=== PATIENT | female | born 1965 | race African-American/Black ===

== ENCOUNTER 2020-07-26 14:08 | Outpatient (REF) | payer MEDICAID, SELFPAY ==
[2020-07-26 14:37] LABS: COVID-19 Test Positive (Negative)
== END 2020-07-26 14:09 | disposition home or self-care (01) ==
LOC: HO.LAB 14:08
PROVIDERS: Visit Provider Internal Medicine
DX: Z20.822 Contact with and (suspected) exposure to COVID-19 (principal)
CPT/HCPCS: 36415; 87635; C9803

== ENCOUNTER 2021-06-28 10:54 | Outpatient (REF) | payer MEDICAID, SELFPAY ==
--- NOTE | ~2021-06-28 | MM_ITS ---
EXAMINATION: MM SCREENING DIGITAL BREAST TOMOSYNTHESIS, BILATERAL CLINICAL INFORMATION: Screening. Asymptomatic. The lifetime risk of breast cancer based on the Tyrer-Cuzick Model is 6%. COMPARISON: Mammography: 04/04/2018, 10/24/2016, 09/12/2015 TECHNIQUE: Digital breast tomosynthesis is performed in both the craniocaudal and mediolateral oblique views along with computer-aided detection (CAD). Synthesized 2D images are generated from the tomosynthesis. FINDINGS: There are scattered areas of fibroglandular density (ACR BI-RADS breast composition Category b). There are no significant masses, abnormal calcifications, or other abnormalities. There are dermal calcifications at the posterior inferior breasts, greater on left. The axilla and skin contours are unremarkable. Parenchymal pattern is similar to prior studies. MM/MM tomosynthesis screening BI IMPRESSION: No mammographic evidence of malignancy. ASSESSMENT: BI-RADS 2: Benign RECOMMENDATION: Routine annual mammography screening. This patient's information was entered into a reminder system with a target due date for their next mammogram.
== END 2021-06-28 10:55 | disposition home or self-care (01) ==
LOC: HO.MAMMO 10:54
PROVIDERS: Visit Provider Internal Medicine
DX: Z12.31 Encounter for screening mammogram for malignant neoplasm of breast (principal)
CPT/HCPCS: 77063; 77067

== ENCOUNTER 2023-04-19 12:16 | Outpatient (REF) | payer MEDICAID, SELFPAY ==
[2023-04-19 13:45] LABS: Hematocrit 38.9 % (37.0-47.0); Hemoglobin 12.9 g/dl (12.0-16.0); Mean Corpuscular HGB Conc 33.2 g/dl (31.0-35.0); Mean Corpuscular Hemoglobin 30.1 pg (27.0-33.0); Mean Corpuscular Volume 90.9 fL (80.0-98.0); Mean Platelet Volume 10.7 fL (9.4-12.3); Platelet Count 325 X10*3/uL (160-400); Red Blood Count 4.28 X10*6/uL (4.20-5.50); Red Cell Distribution Width 13.7 % (11.0-16.0); White Blood Count 7.4 X10*3/uL (4.8-10.8)
[2023-04-19 14:24] LABS: Alanine Aminotransferase 22 U/L (0-31); Albumin Level 4.3 g/dL (3.5-5.0); Alkaline Phosphatase 76 U/L (39-117); Anion Gap 12 (12-20); Aspartate Amino Transferase 24 U/L (5-31); Bilirubin Total 0.5 mg/dL (0.0-1.0); Blood Urea Nitrogen 11 mg/dL (9-16); Calcium 9.7 mg/dL (8.4-10.2); Carbon Dioxide 26 mmol/L (22-29); Chloride 106 mmol/L (96-108); Cholesterol 260 mg/dL (<200); Estimated Glomerular Filt Rate > 60; Glucose Random 106 mg/dL (60-115); HDL Cholesterol 51 mg/dL (>40); LDL Cholesterol Calculated 179 mg/dL (<100); Potassium 3.4 mmol/L (3.3-5.1); Sodium 141 mmol/L (135-145); Total Protein 7.9 g/dL (6.5-8.0); Triglycerides 152 mg/dL (<150)
== END 2023-04-19 12:17 | disposition home or self-care (01) ==
LOC: HO.HHCL 12:16
PROVIDERS: Visit Provider Internal Medicine
DX: Z00.00 Encounter for general adult medical examination without abnormal findings (principal); E78.00 Pure hypercholesterolemia, unspecified; I10 Essential (primary) hypertension
CPT/HCPCS: 36415; 80053; 80061; 84443; 85027

== ENCOUNTER 2023-04-22 14:38 | Outpatient (REF) | payer MEDICAID, SELFPAY | END 2023-04-22 14:39 | disposition home or self-care (01) | LOC: HO.MAMMO 14:38 | PROVIDERS: PCP Internal Medicine; Visit Provider Internal Medicine | DX: Z12.31 Encounter for screening mammogram for malignant neoplasm of breast (principal) | CPT/HCPCS: 77063; 77067 ==

== ENCOUNTER → 2023-04-22 15:15 | Outpatient (BNV) | payer MEDICAID, SELFPAY | PROVIDERS: PCP Internal Medicine; Visit Provider Radiology Diagnostic Radiology | DX: Z12.31 Encounter for screening mammogram for malignant neoplasm of breast (principal) | CPT/HCPCS: 77063; 77067 ==

== ENCOUNTER 2023-04-23 15:06 | Outpatient (REF) | payer MEDICAID, SELFPAY ==
[2023-04-27 06:43] LABS: HPV mRNA E6/E7 rflx Not Detected (Not Detected)
== END 2023-04-23 15:07 | disposition home or self-care (01) ==
LOC: HO.CHCLNP 15:06
PROVIDERS: Visit Provider Advanced Practice Midwife
DX: Z12.4 Encounter for screening for malignant neoplasm of cervix (principal); Z11.51 Encounter for screening for human papillomavirus (HPV)
CPT/HCPCS: 87624; 88142

== ENCOUNTER 2023-05-31 10:01 | Outpatient (REF) | payer MEDICAID, SELFPAY ==
[2023-05-31 11:27] LABS: MANUAL DIFF FLAG NO
[2023-05-31 11:44] LABS: Basophils Percent Auto 0.6 % (0-2); Eosinophils Absolute Auto 0.1 X10*3/uL (0.0-0.4); Eosinophils Percent Auto 0.9 % (0-4); Hematocrit 40.6 % (37.0-47.0); Hemoglobin 13.4 g/dl (12.0-16.0); Imm Gran Abs Auto 0.02 X10*3/uL (0.00-0.03); Imm Gran Pct Auto 0.3 % (0.0-0.4); Lymphocytes Absolute Auto 2.6 X10*3/uL (1.2-4.9); Lymphocytes Percent Auto 39.2 % (20-40); Mean Corpuscular Hemoglobin 30.4 pg (27.0-33.0); Mean Corpuscular Volume 92.1 fL (80.0-98.0); Mean Platelet Volume 10.6 fL (9.4-12.3); Monocytes Absolute Auto 0.6 X10*3/uL (0.1-1.2); Monocytes Percent Auto 8.3 % (2-11); Neutrophils Absolute Auto 3.4 x10*3/uL (2.0-8.3); Neutrophils Percent Auto 50.7 % (45-73); Platelet Count 308 X10*3/uL (160-400); Red Blood Count 4.41 X10*6/uL (4.20-5.50); Red Cell Distribution Width 13.5 % (11.0-16.0); White Blood Count 6.6 X10*3/uL (4.8-10.8)
[2023-05-31 11:52] LABS: Rheumatoid Factor < 13.0 IU/mL (<15.0)
[2023-05-31 11:57] LABS: Alanine Aminotransferase 22 U/L (0-31); Albumin Level 4.5 g/dL (3.5-5.0); Alkaline Phosphatase 75 U/L (39-117); Anion Gap 12 (12-20); Aspartate Amino Transferase 23 U/L (5-31); Bilirubin Total 0.5 mg/dL (0.0-1.0); Blood Urea Nitrogen 15 mg/dL (9-16); C Reactive Protein 0.65 mg/dL (< or = 0.50); Calcium 10.1 mg/dL (8.4-10.2); Carbon Dioxide 27 mmol/L (22-29); Chloride 107 mmol/L (96-108); Estimated Glomerular Filt Rate > 60; Glucose Random 103 mg/dL (60-115); Potassium 4.4 mmol/L (3.3-5.1); Sodium 142 mmol/L (135-145); Total Protein 8.1 g/dL (6.5-8.0)
[2023-05-31 12:19] LABS: Erythrocyte Sedimentation Rate 13 MM/HR (0-20)
[2023-06-04 13:48] LABS: Parvovirus B19 IgG 6.61; Parvovirus B19 IgM <0.9
[2023-06-06 12:24] LABS: Anti Nuclear Antibody Screen NEGATIVE (NEGATIVE)
== END 2023-05-31 10:02 | disposition home or self-care (01) ==
LOC: HO.HHCL 10:01
PROVIDERS: Visit Provider Family Medicine
DX: M25.50 Pain in unspecified joint (principal); M79.10 Myalgia, unspecified site
CPT/HCPCS: 36415; 80053; 82550; 85025; 85652; 86038; 86140; 86431; 86747

== ENCOUNTER 2023-05-31 10:22 | Outpatient (REF) | payer MEDICAID, SELFPAY ==
--- NOTE | ~2023-05-31 | XR_ITS ---
EXAMINATION: XR CERVICAL AND LUMBAR SPINE CLINICAL INFORMATION: Neck pain, back pain. COMPARISON: Lumbar spine January 01, 2018 TECHNIQUE: 4 views of the cervical spine. 3 views of the lumbar spine. FINDINGS: Cervical Spine: Rightward curvature of the cervical spine with rotation limiting evaluation of the odontoid. Amorphous soft tissue calcifications in the neck, predominantly on the left. Multilevel degenerative changes with advanced loss of disc space height and hypertrophic change at C5-C6. Minimal anterolisthesis of C4 on C5. C7 obscured by overlying soft tissues. Lumbar Spine: Small pelvic calcifications are likely vascular. The bilateral sacroiliac joints are symmetrical. Degenerative changes on limited images of the lower thoracic spine. Facet arthritis in the lower lumbar spine. Multilevel lumbar spondylosis with mild loss of disc space height at L4-L5 and L5-S1. Grade 1 retrolisthesis of L4 and L5. XR/XR lumbar spine 2-3V IMPRESSION: 1. Multilevel degenerative changes in the cervical spine most notable at C5-C6. 2. Multilevel lumbar spondylosis most notable at L4-L5 and L5-S1.
--- NOTE | ~2023-05-31 | XR_ITS ---
EXAMINATION: XR CERVICAL AND LUMBAR SPINE CLINICAL INFORMATION: Neck pain, back pain. COMPARISON: Lumbar spine January 01, 2018 TECHNIQUE: 4 views of the cervical spine. 3 views of the lumbar spine. FINDINGS: Cervical Spine: Rightward curvature of the cervical spine with rotation limiting evaluation of the odontoid. Amorphous soft tissue calcifications in the neck, predominantly on the left. Multilevel degenerative changes with advanced loss of disc space height and hypertrophic change at C5-C6. Minimal anterolisthesis of C4 on C5. C7 obscured by overlying soft tissues. Lumbar Spine: Small pelvic calcifications are likely vascular. The bilateral sacroiliac joints are symmetrical. Degenerative changes on limited images of the lower thoracic spine. Facet arthritis in the lower lumbar spine. Multilevel lumbar spondylosis with mild loss of disc space height at L4-L5 and L5-S1. Grade 1 retrolisthesis of L4 and L5. XR/XR cervical spine 3V IMPRESSION: 1. Multilevel degenerative changes in the cervical spine most notable at C5-C6. 2. Multilevel lumbar spondylosis most notable at L4-L5 and L5-S1.
== END 2023-05-31 10:23 | disposition home or self-care (01) ==
LOC: HO.XRAY 10:22
PROVIDERS: PCP Family Medicine; Visit Provider Family Medicine
DX: M54.2 Cervicalgia (principal); M54.50 Low back pain, unspecified
CPT/HCPCS: 36415; 72040; 72100; 80053; 82550; 85025; 85652; 86038; 86140; 86431; 86747

== ENCOUNTER 2023-08-22 14:23 | Outpatient (REF) | payer MEDICAID, SELFPAY ==
--- NOTE | ~2023-08-22 | XR_ITS ---
EXAMINATION: XR SHOULDER, RIGHT CLINICAL INFORMATION: Chronic right shoulder pain COMPARISON: None available. TECHNIQUE: AP external rotation, Grashey, scapular Y, and axillary views of the right shoulder. FINDINGS: There are 2 adjacent areas of calcification overlying the greater tuberosity. The glenohumeral joint and acromioclavicular joint are normal. Surrounding bone and soft tissues otherwise unremarkable. XR/XR shoulder RT min 2V IMPRESSION: 1. Calcifications overlying the greater tuberosity likely reflecting calcific tendinosis/tendinitis. 2. Otherwise unremarkable.
== END 2023-08-22 14:24 | disposition home or self-care (01) ==
LOC: HO.XRAY 14:23
PROVIDERS: PCP Internal Medicine; Visit Provider Pediatrics
DX: M25.511 Pain in right shoulder (principal)
CPT/HCPCS: 73030

== ENCOUNTER 2024-06-22 13:33 | Outpatient (REF) | payer MEDICAID, SELFPAY ==
[2024-06-22 16:17] LABS: MANUAL DIFF FLAG NO
[2024-06-22 16:26] LABS: Basophils Percent Auto 0.4 % (0-2); Eosinophils Absolute Auto 0.1 X10*3/uL (0.0-0.4); Eosinophils Percent Auto 0.7 % (0-4); Hematocrit 36.2 % (37.0-47.0); Hemoglobin 12.1 g/dl (12.0-16.0); Imm Gran Abs Auto 0.04 X10*3/uL (0.00-0.03); Imm Gran Pct Auto 0.5 % (0.0-0.4); Lymphocytes Absolute Auto 2.9 X10*3/uL (1.2-4.9); Lymphocytes Percent Auto 36.6 % (20-40); Mean Corpuscular HGB Conc 33.4 g/dl (31.0-35.0); Mean Corpuscular Volume 89.8 fL (80.0-98.0); Mean Platelet Volume 10.1 fL (9.4-12.3); Monocytes Absolute Auto 0.8 X10*3/uL (0.1-1.2); Monocytes Percent Auto 9.8 % (2-11); Neutrophils Absolute Auto 4.2 x10*3/uL (2.0-8.3); Platelet Count 326 X10*3/uL (160-400); Red Blood Count 4.03 X10*6/uL (4.20-5.50); Red Cell Distribution Width 13.8 % (11.0-16.0)
[2024-06-22 16:56] LABS: Alanine Aminotransferase 28 U/L (0-31); Albumin Level 4.3 g/dL (3.5-5.0); Anion Gap 13 (12-20); Aspartate Amino Transferase 31 U/L (5-31); Bilirubin Total 0.5 mg/dL (0.0-1.0); Blood Urea Nitrogen 20 mg/dL (9-16); Calcium 9.7 mg/dL (8.4-10.2); Carbon Dioxide 25 mmol/L (22-29); Chloride 104 mmol/L (96-108); Cholesterol 171 mg/dL (<200); Estimated Glomerular Filt Rate > 60; Glucose Random 102 mg/dL (60-115); HDL Cholesterol 60 mg/dL (>40); LDL Cholesterol Calculated 92 mg/dL (<100); Potassium 3.2 mmol/L (3.3-5.1); Sodium 139 mmol/L (135-145); Triglycerides 98 mg/dL (<150)
[2024-06-22 17:02] LABS: Alkaline Phosphatase 72 U/L (39-117); TSH reflex Free T4 2.22 uIU/mL (0.32-4.0)
== END 2024-06-22 13:34 | disposition home or self-care (01) ==
LOC: HO.HHCL 13:33
PROVIDERS: Visit Provider Internal Medicine
DX: Z00.00 Encounter for general adult medical examination without abnormal findings (principal); E78.00 Pure hypercholesterolemia, unspecified; I10 Essential (primary) hypertension; F32.A Depression, unspecified
CPT/HCPCS: 36415; 80053; 80061; 84443; 85025

== ENCOUNTER 2024-06-24 11:32 | Outpatient (REF) | payer MEDICAID, SELFPAY ==
--- OUTSIDE RECORDS SUMMARY | 2024-06-24 14:04 | XMS_ITS | Encounter Summary ---
Author Organization [employer] Address [address] [place] [address] Care Team Providers Care Material Scheduler Name Role Phone Amari Cabrera MD Primary Care Provider [phone] Reason for Visit * Reason Comments Annual Exam Encounter Details Date Type Department Care Team ([facility] st Contact Info) Description 06/18/2024 2:00 PM EDT Office Visit [facility] [address], [place] [phone] Amari Cabrera MD [address] [place] [phone] Annual physical exam (Primary Dx); Hypercholesterolemia; Primary hypertension; Myalgia; Depressive disorder; Screening for colon cancer; Tinea versicolor; Essential (primary) hypertension; Rosacea Social History Tobacco Use Types Packs/Day Years Used Date Smoking Tobacco: Never Smokeless Tobacco: Never Alcohol Use Standard Drinks/Week Comments Not Currently 0 (1 standard drink = 0.6 oz pur e alcohol) Alcohol Answer Date Recorded How often do you have a drink containing alcohol ? 1 06/18/2024 How many drinks containing a lcohol do you have on a typical day when you are drinking? 1 06/18/2024 Frequency of Binge Drinking Not on file 05/31 Depression Answer Date Recorded Patient Health Questionnaire-9 Score 6 06/18/2024 Patient Health Questionnaire-9 Score 6 06/18/2024 Last PHQ-9: Questionnaire Data Not on file 0 06/18/2024 Housing Stability Answer Date Recorded What is your housing situation today? I have tere petit 06/11/[address] you li ve. Do you have problems with any of the following? None of the above 06/11/2024 Food Insecurity Answer Date Recorded Within the past 12 months, y ou worried that your food would run out before you got money to buy more: Never True 06/11/2024 Within the past 12 months,th e food you bought just didn't last and you didn't have enough money to get more: Never True Transportation Answer Date Recorded In the past 12 months, has l ack of transportation kept you from medical appts, meetings, work or from getting things needed for daily living? Yes, it has kept me from medical appointments or getting medications. 06/11/2024 Utilities Answer Date Recorded In the past 12 months, has t he electric, gas, oil or water company threatened to shut off services in your home? No 06/11/2024 Depression Answer Date Recorded Patient Health Questionnaire-2 Score 2 06/18/2024 Internet Access Answer Date Recorded Internet Access Q1 Yes 06/11/2024 Internet Access Q2 Not on file 06/11/2024 Comments No Sex and Gender Information Value Date Recorded Sex Assigned at Female 01/29/2022 10:15 AM EDT Legal Sex Female 10:15 AM EDT Gender Identity Female 01/29/2022 10:15 AM EDT Sexual Orientation Straight 01/29/2022 10 :15 AM EDT documented as of this encounter Last Filed Vital Signs Vital Sign Reading Time Taken Comments Blood Pressure 140/82 06/18/2024 1:53 PM EDT Pulse 74 06/18/2024 1:53 PM EDT Temperature 36.7 ??C (98 ??F) 06/18/2024 1:53 PM EDT Respiratory Rate 20 06/18/2024 1:53 PM EDT Oxygen Saturation 98% 06/18/2024 1:53 PM EDT Inhaled Oxygen Concentration - - Weight 67.1 kg (148 lb) 06/18/2024 1:53 PM EDT Height 160 cm (5' 3 ) 06/18/2024 1:53 PM EDT Body Mass Index 26.22 06/18/2024 1:53 PM EDT documented in this encounter Progress Notes * Amari Cabrera MD - 06/18/2024 2:00 PM EDT Subjective Patient ID: Oriana Lares is a 58 y.o. female who presents for Annual Exam. HPI Patient is here for her annual physical exam. 1) history of hypertension. Takes her medication and consistently. No side effect reported. 2) history of tinea versicolor. Has some recurrence of the lesions in the last 2 to 3 weeks. Would like to get her previous treatment. 3) patient is currently grieving the loss of a close friend. Also reports that she is worried abouther who is currently receiving hemodialysis. 4) also requesting a referral to get an eye exam. 5) history of's of rosacea. Patient is requesting a refill of her metronidazole Patient Active Problem List Diagnosis Depressive disorder Hypercholesterolemia Hypertensive disorder Myalgia Polyarthralgia Current Outpatient Medications on File Prior to Visit Medication Sig Dispense Refill amLODIPine (Norvasc) 10 MG tablet Take 1 tablet (10 mg) by mouth in the morning. 90 tablet 3 atorvastatin (Lipitor) 40 MG tablet Take 1 tablet (40 mg) by mouth at bedtime. 90 tablet 3 cyclobenzaprine (Flexeril) 10 MG tablet Take 1 tablet (10 mg) by mouth 3 times daily for 10 days. 30 tablet 0 Diclofenac Sodium 1 % gel To apply to the affected area 4 times a day. 100 g 2 diphenhydrAMINE (BENADryl) 25 MG capsule TAKE 1 CAPSULE BY MOUTH EVERY 8 HOURS NEEDED FOR ITCHING 60 capsule 0 fluconazole (Diflucan) 150 MG tablet 300 mg once weekly for 2 weeks 4 tablet 0 hydroCHLOROthiazide (HYDRODiuril) 25 MG tablet Take 1 tablet (25 mg) by mouth in the morning. 90 tablet 3 lidocaine (Xylocaine) 5 % ointment Apply topically if needed for mild pain. 50 g 0 metroNIDAZOLE (MetroCream) 0.75 % cream Apply topically 2 times daily. 45 g 5 Multiple Vitamin (Multivitamin) tablet TAKE 1 TABLET BY MOUTH EVERY DAY 90 tablet 3 zaleplon (Sonata) 10 MG capsule TAKE 1 CAPSULE BY MOUTH EVERY DAY AT BEDTIME NEEDED FOR SLEEP No current facility-administered medications on file prior to visit. No Known Allergies Review of Systems Constitutional: Negative for activity change, appetite change, chills and diaphoresis. HENT: Negative for dental problem, drooling, ear discharge, ear pain and hearing loss. Eyes: Negative for pain, discharge and itching. Respiratory: Negative for cough, choking and chest tightness. Cardiovascular: Negative for chest pain and leg swelling. Gastrointestinal: Negative for blood in stool and diarrhea. Genitourinary: Negative for difficulty urinating, dyspareunia, dysuria, enuresis, flank pain, frequency and genital sores. Musculoskeletal: Negative for arthralgias, gait problem and joint swelling. Skin: Negative for pallor. Neurological: Negative for dizziness, seizures, speech difficulty, light- headedness and numbness. Psychiatric/Behavioral: Negative for behavioral problems, confusion and decreased concentration. Objective BP (!) 140/82 (BP Location: Left arm, Patient Position: Sitting, BP Cuff Size: Adult) Pulse 74 Temp 98 ??F (36.7 ??C) (Oral) Resp 20 Ht 5' 3 (1.6 m) Wt 148 lb (67.1 kg) SpO2 98% BMI 26.22 kg/m?? Physical Exam Constitutional: General: She is not in acute distress. Appearance: Normal appearance. She is not ill-appearing, toxic-appearing or diaphoretic. HENT: Head: Normocephalic. Right Ear: Tympanic membrane normal. There is no impacted cerumen. Left Ear: Tympanic membrane normal. There is no impacted cerumen. Nose: Nose normal. No congestion or rhinorrhea. Mouth/Throat: Mouth: Mucous membranes are moist. Eyes: General: No scleral icterus. Right eye: No discharge. Left eye: No discharge. Pupils: Pupils are equal, round, and reactive to light. Cardiovascular: Rate and Rhythm: Normal rate and regular rhythm. Heart sounds: No murmur heard. No friction rub. No gallop. Pulmonary: Effort: Pulmonary effort is normal. No respiratory distress. Breath sounds: No stridor. No wheezing, rhonchi or rales. Chest: Chest wall: No tenderness. Abdominal: General: There is no distension. Palpations: Abdomen is soft. There is no mass. Tenderness: There is no abdominal tenderness. There is no right CVA tenderness or left CVA tenderness. Musculoskeletal: General: Normal range of motion. Cervical back: Normal range of motion. Skin: Comments: Multiple mildly erythematous patches of around 1 x 1 cm of diameter with fine scales located on the anterior chest and upper back. Neurological: General: No focal deficit present. Mental Status: She is alert and oriented to person, place, and time. Psychiatric: Mood and Affect: Mood normal. Assessment/Plan Diagnoses and all orders for this visit: Annual physical exam Comments: Normal cardiopulmonary exam Patient is to maintain a healthy and balanced diet. She declines all vaccines today. Orders: - CBC auto differential; Future - Comprehensive Metabolic Panel; Future - Lipid Panel, Standard; Future - TSH W/Reflex to FT4; Future Hypercholesterolemia Comments: Low-cholesterol diet Lipid panel ordered. Further management depending on the results. Orders: - CBC auto differential; Future - Comprehensive Metabolic Panel; Future - Lipid Panel, Standard; Future - TSH W/Reflex to FT4; Future Primary hypertension Comments: Compliance to medication reinforced DASH diet recommended. Orders: - CBC auto differential; Future - Comprehensive Metabolic Panel; Future - Lipid Panel, Standard; Future - TSH W/Reflex to FT4; Future Myalgia Comments: Stable No acute intervention today. Depressive disorder Comments: Patient declines a referral to start psychotherapy. Orders: - CBC auto differential; Future Screening for colon cancer - Cologuard?? colon cancer screening; Future Tinea versicolor - fluconazole (Diflucan) 150 MG tablet; 300 mg on day 1, 300 mg on day 7 Essential (primary) hypertension Comments: Uncontrolled due to non compliance to medication Pt is to resume her BP medication DASH diet recommended. RTC BP check 1 month Orders: - amLODIPine (Norvasc) 10 MG tablet; Take 1 tablet (10 mg) by mouth in the morning. - hydroCHLOROthiazide (HYDRODiuril) 25 MG tablet; Take 1 tablet (25 mg) by mouth in the morning. Rosacea - metroNIDAZOLE (MetroCream) 0.75 % cream; Apply topically 2 times daily. documented in this encounter Plan of Treatment Upcoming Encounters Date Type Department Care Team (Late st Contact Info) Description 09/23/2024 10:30 AM EDT Office Visit [facility] [address] [place] [address] Amari Cabrera MD [address] [place], [place] [phone] Scheduled Orders Name Type Priority Associated Diagnoses Orde r Schedule Cologuard?? colon cancer screening Lab Routine Screening for colon cancer Expected: 06/18/2024 (Approximate), Expires: 06/18/2025 documented as of this encounter Procedures Procedure Name Priority Date/Time Associated Diagnosis Comments TSH W/REFLEX TO FT4 Routine 06/22/2024 1 :35 PM EDT Annual physical exam Hypercholesterolemia Primary hypertension CBC WITH AUTO DIFFERENTIAL Routine 06/22/2024 1:35 PM EDT Annual physical exam Hypercholesterolemia Primary hypertension Depressive disorder LIPID PANEL, STANDARD Routine 06/22/2024 1:35 PM EDT Annual physical exam Hypercholesterolemia Primary hypertension COMPREHENSIVE METABOLIC PANEL Routine 06/22/2024 1:35 PM EDT Annual physical exam Hypercholesterolemia Primary hypertension documented in this encounter Results * TSH W/Reflex to FT4 (06/22/2024 1:35 PM EDT) TSH reflex Free T4 2.22 0.32 - 4.0 uIU/mL [facility] Blood Venous blood specimen / Unknown 06/22/2024 1:35 PM EDT 06/22/2024 4:11 PM EDT us Amari Cabrera MD LAB BLOOD ORDERABLES Final Result [facility] [address] [place] [phone] * Lipid Panel, Standard (06/22/2024 1:35 PM EDT) Triglycerides 98 <150 mg/dL [facility] Comment:Desirable Triglyceri de: less than 150 mg/dLBorderline High Triglyceride 150-199 mg/dLHigh Triglyceride: 200-499 mg/dLVery High Triglyceride: greater than or equal to 5OO mg/dL Cholesterol 171 <200 mg/dL [facility] Comment:Desirable Cholestero l: less than 200 mg/dLBorderline High Cholesterol: 200-239 mg/dLHigh Cholesterol: greater than 239 mg/dL LDL Cholesterol Calculated 92 <100 mg/dL [facility] Comment:Desirable LDL: less than 100 mg/dLNear Optimal/Above Optimal LDL: 110- 129 mg/dLBorderline High LDL: 130-159 mg/dLHigh LDL: 160-189 mg/dLVery High LDL: greater than or equal to 190 mg/dL HDL Cholesterol 60 >40 mg/dL [facility] Comment:Desirable HDL: great er than 40 mg/dL Note: This HDL assay may give artificially low results in patients with liver disease. Blood Venous blood specimen / Unknown 06/22/2024 1:35 PM EDT 06/22/2024 4:11 PM EDT us Amari Cabrera MD LAB BLOOD ORDERABLES Final Result [facility] [address] [place] [phone] * (ABNORMAL) Comprehensive Metabolic Panel (06/22/2024 1:35 PM EDT) Sodium 139 135 - 145 mmol/L [facility] Potassium 3.2(L) 3.3 - 5.1 mmol/L [facility] Chloride 104 96 - 108 mmol/L [facility] Carbon Dioxide 25 22 - 29 mmol/L [facility] Anion Gap 13 12 - 20 [facility] Urea Nitrogen (BUN) 20(H) 9 - 16 mg/dL [facility] Creatinine, Serum 0.65 0.5 - 1.4 mg/dL [facility] Estimated Glomerular Filt Rate >60 [facility] Comment:Chronic Kidney Disea se: Estimated GFR < 60 mL/min/[id number] Kidney Disease: Estimated GFR < 15 mL/min/1.73m2 Glucose 102 60 - 115 mg/dL [facility] Calcium 9.7 8.4 - 10.2 mg/dL [facility] Bilirubin, Total 0.5 0.0 - 1.0 mg/dL [facility] Aspartate Amino Transferase 31 5 - 31 U/L [facility] Alanine Aminotransferase 28 0 - 31 U/L [facility] Total Protein 8.0 6.5 - 8.0 g/dL [facility] Albumin Level 4.3 3.5 - 5.0 g/dL [facility] Alkaline Phosphatase 72 39 - 117 U/L [facility] Blood Venous blood specimen / Unknown 06/22/2024 1:35 PM EDT 06/22/2024 4:11 PM EDT us Amari Cabrera MD LAB BLOOD ORDERABLES Final Result [facility] [address] [place] [phone] * (ABNORMAL) CBC auto differential (06/22/2024 1:35 PM EDT) White Blood Count 8.0 4.8 - 10.8 X10*3/uL [facility] Red Blood Count 4.03(L) 4.20 - 5.50 X10*6/uL [facility] Hemoglobin 12.1 12.0 - 16.0 g/dl [facility] Hematocrit 36.2(L) 37.0 - 47.0 % [facility] Mean Corpuscular Volume 89.8 80.0 - 98.0 fL [facility] Mean Corpuscular Hemoglobin 30.0 27.0 - 33.0 pg [facility] Mean Corpuscular HGB Conc 33.4 31.0 - 35.0 g/dl [facility] Red Cell Distribution Width 13.8 11.0 - 16.0 % [facility] Platelet Count 326 160 - 400 X10*3/uL [facility] Mean Platelet Volume 10.1 9.4 - 12.3 fL [facility] Neutrophils Percent Auto 52.0 45 - 73 % [facility] Imm Gran Pct Auto 0.5(H) 0.0 - 0.4 % [facility] Lymphocytes Percent Auto 36.6 20 - 40 % [facility] Monocytes Percent Auto 9.8 2 - 11 % [facility] Eosinophils Percent Auto 0.7 0 - 4 % [facility] Basophils Percent Auto 0.4 0 - 2 % [facility] NRBC Pct Auto 0.0 0.0 - 0.2 /100WBC [facility] Neutrophils Absolute Auto 4.2 2.0 - 8.3 x10*3/uL [facility] Imm Gran Abs Auto 0.04(H) 0.00 - 0.03 X10*3/uL [facility] Lymphocytes Absolute Auto 2.9 1.2 - 4.9 X10*3/uL [facility] Monocytes Absolute Auto 0.8 0.1 - 1.2 X10*3/uL [facility] Eosinophils Absolute Auto 0.1 0.0 - 0.4 X10*3/uL [facility] Basophils Absolute Auto 0.0 0.0 - 0.2 X10*3/uL [facility] NRBC Abs Auto 0.000 0.0 - 0.012 X10*3/uL [facility] Blood Venous blood specimen / Unknown 06/22/2024 1:35 PM EDT 06/22/2024 4:11 PM EDT us Amari Cabrera MD LAB BLOOD ORDERABLES Final Result Performing Organization Address City/State/[facility] Co de Phone Number [facility] [address] [place] [phone] documented in this encounter Visit Diagnoses Diagnosis Annual physical exam- Primary Routine general medical examination at a health care facility Hypercholesterolemia Pure hypercholesterolemia Primary hypertension Unspecified essential hypertension Myalgia Unspecified myalgia and myositis Depressive disorder Depressive disorder, not elsewhere classified Screening for colon cancer Special screening for malignant neoplasms, colon Tinea versicolor Pityriasis versicolor Essential (primary) hypertension Unspecified essential hypertension Rosacea documented in this encounter Additional Health Concerns Assessment Noted Time PHQ-9 Depression Total Score: 6 06/19/19 25 2:22 PM EDT documented as of this encounter Care Teams Material Scheduler Relationship Specialty Start Date End Date Amari Cabrera MD [address] [place] [phone] PCP - General Internal Medicine 07/27/11 documented as of this encounter
--- OUTSIDE RECORDS SUMMARY | 2024-06-24 14:04 | XMS_ITS | Encounter Summary ---
Author Organization [employer] Address [address] [place] [address] Care Team Providers Care Booking Manager Name Role Phone Amari Cabrera MD Primary Care Provider [phone] Encounter Details Date Type Department Care Team ([facility] st Contact Info) Description 04/19/2023 Orders Only [facility] MED & PEDS [address] [place] [address] Amari Cabrera MD [address] [place] [address] Social History Tobacco Use Types Packs/Day Years Used Date Smoking Tobacco: Never Smokeless Tobacco: Never Depression Answer Date Recorded Patient Health Questionnaire-9 Score 13 03/13/2023 Patient Health Questionnaire-9 Score 13 03/13/2023 Last PHQ-9: Questionnaire Data Not on file 1 05/14/2022 Housing Stability Answer Date Recorded What is your housing situation today? I do not have housing (Staying with others, in a hotel, in a prison, living outside on the street, on a beach, in a car, or in a park 01/06/[address] you li ve. Do you have problems with any of the following? None of the above 01/06/2023 Food Insecurity Answer Date Recorded Within the past 12 months, y ou worried that your food would run out before you got money to buy more: Often true 01/14/2023 Within the past 12 months,th e food you bought just didn't last and you didn't have enough money to get more: Often true Transportation Answer Date Recorded In the past 12 months, has l ack of transportation kept you from medical appts, meetings, work or from getting things needed for daily living? No 01/14/2023 Utilities Answer Date Recorded In the past 12 months, has t he electric, gas, oil or water company threatened to shut off services in your home? No 01/14/2023 Depression Answer Date Recorded Patient Health Questionnaire-2 Score 6 03/13/2023 Comments Unknown Sex and Gender Information Value Date Recorded Sex Assigned at Female 01/29/2022 10:15 AM EDT Legal Sex Female 10:15 AM EDT Gender Identity Female 01/29/2022 10:15 AM EDT Sexual Orientation Straight 01/29/2022 10 :15 AM EDT documented as of this encounter Plan of Treatment Upcoming Encounters Date Type Department Care Team ([facility] st Contact Info) Description 09/23/2024 10:30 AM EDT Office Visit [facility] MED & PEDS [address] [place] [address] mAari Cabrera MD [address] [place] [address] documented as of this encounter Visit Diagnoses Not on filedocumented in this encounter Additional Health Concerns Assessment Noted Time PHQ-9 Depression Total Score: 13 023 10:43 AM EST documented as of this encounter Care Teams Booking Manager Relationship Specialty Start Date End Date Amari Cabrera MD [address] [place] [address] PCP - General Internal Medicine 07/27/11 documented as of this encounter
--- OUTSIDE RECORDS SUMMARY | 2024-06-24 14:04 | XMS_ITS | Encounter Summary ---
Author Organization [employer] Address [address] [facility] [address] [place] [address] Care Team Providers Care Optical Lab Technician Name Role Phone Amari Cabrera MD Primary Care Provider [phone] Encounter Details Date Type Department Care Team (Late st Contact Info) Description 06/23/2024 Orders Only [facility] MEDICINE [address] [place] [address] Amari Cabrera MD [address] [place] [address] Hypokalemia (Primary Dx) Social History Tobacco Use Types Packs/Day Years [...] Description 09/23/2024 10:30 AM EDT Office Visit [facility] MED & PEDS [address] [place] [address] Amari Cabrera MD [address] [place] [address] Scheduled Orders Name Type Priority Associated Diagnoses Orde r Schedule Basic Metabolic Panel Lab Routine Hypokalemia Expected: 06/23/2024 (Approximate), Expires: 06/23/2025 documented as of this encounter Visit Diagnoses Diagnosis Hypokalemia- Primary Hypopotassemia documented in this encounter Additional Health Concerns Assessment Noted Time PHQ-9 Depression Total Score: 6 06/19/19 2:22 PM EDT documented as of this encounter Care Teams Optical Lab Technician Relationship Specialty Start Date End Date Amari Cabrera MD [address] [place] [address] PCP - General Internal Medicine 07/27/11 documented as of this encounter
--- OUTSIDE RECORDS SUMMARY | 2024-06-24 14:04 | XMS_ITS | Encounter Summary ---
Author Organization [employer] Address [address] [facility] [address] [place] [address] Care Team Providers Care Photographer News Name Role Phone Amari Cabrera MD Primary Care Provider [phone] Reason for Visit * Reason Onset Date Comments Chart Prep 06/17/2024 Encounter Details Date Type Department Care Team ([facility] st Contact Info) Description 06/17/2024 Telephone [facility] MED & PEDS [address] [place], [place] [id number] Amari Cabrera MD [address] [place] [address] Chart Prep Social History Tobacco Use Types Packs/Day Years [...] the past 12 months, has t he [employer], gas, oil or water company threatened to [...] AM EDT documented as of this encounter Miscellaneous Notes * Telephone Encounter - Analisa Chinchilla [place] - 06/17/2024 3:26 PM EDT Chart Prep Labs: done Images: done Vaccines due: yes Referrals: complete Screenings: colonoscopy Overdue care gaps: Sbirt, PHQ-9, disability screening documented in this encounter Plan of Treatment Upcoming Encounters Date Type Department Care Team ([facility] st Contact Info) Description 09/23/2024 10:30 AM EDT Office Visit [facility] MED & PEDS [address] [place] [address] Amari Cabrera MD [address] [place] [address] documented as of this encounter Visit Diagnoses Not on filedocumented in this encounter Additional Health Concerns Assessment Noted Time PHQ-9 Depression Total Score: 13 023 10:43 AM EST documented as of this encounter Care Teams Photographer News Relationship Specialty Start Date End Date Amari Cabrera MD [address] [place] [id number] PCP - General Internal Medicine 07/27/11 documented as of this encounter
--- OUTSIDE RECORDS SUMMARY | 2024-06-24 14:04 | XMS_ITS | Clinical Summary ---
Author Organization [employer] Address [address] [facility] [address] [place] [address] Care Team Providers Care Burner Technician Name Role Phone Amari Cabrera MD Primary Care Provider [phone] Allergies No known active allergies Medications Multiple Vitamin (Multivitamin) tabletIndicatio ns:Other iron deficiency anemia TAKE 1 TABLET BY MOUTH EVERY DAY 90 tablet 3 03/29/20 22 Active diphenhydrAMINE (BENADryl) 25 MG capsuleIndicati ons:Pruritus of skin TAKE 1 CAPSULE BY MOUTH EVERY 8 HOURS NEEDED FOR ITCHING 60 capsule 06/20/19 23 Active zaleplon (Sonata) 10 MG capsule TAKE 1 CAPSULE BY MOUTH EVERY DAY AT BEDTIME NEEDED FOR SLEEP Active Diclofenac Sodium 1 % gelIndications: Neck pain,Acute midline low back pain without sciatica To apply to the affected area 4 times a day. 100 g 2 06/13/19 24 Active cyclobenzaprine (Flexeril) 10 MG tabletIndicatio ns:Acute pain of right shoulder Take 1 tablet (10 mg) by mouth 3 times daily for 10 days. 30 tablet 08/27/19 24 Active lidocaine (Xylocaine) 5 % ointmentIndicat ions:Acute pain of right shoulder Apply topically if needed for mild pain. 50 g 08/27/19 24 025 Active fluconazole (Diflucan) 150 MG tabletIndicatio ns:Pityriasis versicolor 300 mg once weekly for 2 weeks 4 tablet 08/29/19 24 Active atorvastatin (Lipitor) 40 MG tabletIndicatio ns:Hypercholest erolemia Take 1 tablet (40 mg) by mouth at bedtime. 90 tablet 3 01/28/20 25 Active fluconazole (Diflucan) 150 MG tabletIndicatio ns:Tinea versicolor 300 mg on day 1, 300 mg on day 7 4 tablet 06/19/19 Active amLODIPine (Norvasc) 10 MG tabletIndicatio ns:Essential (primary) hypertension Take 1 tablet (10 mg) by mouth in the morning. 90 tablet 3 06/19/19 Active metroNIDAZOLE (MetroCream) 0.75 % creamIndication s:Rosacea Apply topically 2 times daily. 45 g 5 06/19/19 25 026 Active potassium chloride CR (Klor-Con M20) 20 MEQ ER tabletIndicatio ns:Hypokalemia Take 1 tablet (20 mEq) by mouth 2 times daily. Do not crush or chew. 20 tablet 06/24/19 25 026 Active hydroCHLOROthia zide 12.5 MG tablet Take 1 tablet (12.5 mg) by mouth Once per day. 30 tablet 11 06/24/19 25 026 Active metroNIDAZOLE (MetroCream) 0.75 % creamIndication s:Rosacea Apply topically 2 times daily. 45 g 5 04/28/19 25 025 Discontinued(Re order (will not trigger notification to Pharmacy)) amLODIPine (Norvasc) 10 MG tabletIndicatio ns:Essential (primary) hypertension Take 1 tablet (10 mg) by mouth in the morning. 90 tablet 3 04/28/19 25 025 Discontinued(Re order (will not trigger notification to Pharmacy)) hydroCHLOROthia zide (HYDRODiuril) 25 MG tabletIndicatio ns:Essential (primary) hypertension Take 1 tablet (25 mg) by mouth in the morning. 90 tablet 3 04/28/19 25 025 Discontinued(Re order (will not trigger notification to Pharmacy)) hydroCHLOROthia zide (HYDRODiuril) 25 MG tabletIndicatio ns:Essential (primary) hypertension Take 1 tablet (25 mg) by mouth in the morning. 90 tablet 3 06/19/19 25 025 Discontinued Active Problems Problem Noted Date Diagnosed Date Myalgia 05/31/2023 Assessment & Plan (05/31/2023 9:35 AM EST): Patient reports continuous body aches that began a month ago. She denies any recent injuries. I have placed an order for XR of cervical spine and lumbar spine and prescribed her diclofenac 50 mg and Zanaflex 4 mg. Scheduled F/U with Dr. Cabrera. Labs: SAE Screen, C-reactive Protein, CBC, Comprehensive Metabolic Panel, Creatine Kinase, Cyclic Citrullinated Peptide Antibody, Parvovirus B19 Antibodies, Rheumatoid Factor, Sed Rate Future Appointments Date Time Provider Department Center 06/13/2023 9:00 AM Amari Cabrera MD [facility] Polyarthralgia 05/31/2023 Hypercholesterolemia 05/12/2020 Hypertensive disorder 08/03/2016 Depressive disorder 11/29/2014 Encounters Date Type Department Care Team Description 06/23/2024 Orders Only [facility] [address] [place] [address] Amari Cabrera MD Hypokalemia (Primary Dx) 06/18/2024 2:00 PM EDT Office Visit [facility] [address] [place] [address] Amari Cabrera MD Annual physical exam (Primary Dx); Hypercholesterolemi a; Primary hypertension; Myalgia; Depressive disorder; Screening for colon cancer; Tinea versicolor; Essential (primary) hypertension; Rosacea 06/18/2024 Travel 06/17/2024 Telephone [facility] [address] [place] [address] Amari Cabrera MD Chart Prep 06/12/2024 Population Health Risk Score [facility] ([facility]) Department [address] [phone] Provider, Population Health Generic 06/11/2024 Patient Outreach [facility] [address] [place] [address] Amari Cabrera MD Pre-visit Planning (SDOH positive, Tobacco screening negative) 04/28/2024 2:20 PM EST Office Visit [facility] [address] [place] [address] Funk, Paola, MD Rosacea (Primary Dx); Essential (primary) hypertension; Hypercholesterolemi a; Primary hypertension 04/28/2024 Travel 04/28/2024 Telephone [facility] [address] [place] [address] Amari Cabrera MD Nurse Triage 04/08/2024 Patient Outreach [facility] [address] [place], [place] [phone] Amari Cabrera MD Pre-visit Planning (SDOH unable to complete, patient cancelled appointment) from Last 3 Months Immunizations Name Administration Dates Next Due Influenza injectable quadriv alent IIV4 with preservative 12/17/2017 Influenza, Split (incl. purified surface antigen ) 01/17/2012 Tdap 11/29/2014 Family History Medical History Relation Name Comments Hypertension Mother Relation Name Status Comments Mother Social History Tobacco Use Types Packs/Day Years Used Date Smoking Tobacco: Never Smokeless Tobacco: Never Tobacco Cessation:Counseling Given: Not Answered Alcohol Use Standard Drinks/Week Comments Not Currently [...] Orientation Straight 01/29/2022 10 :15 AM EDT Last Filed Vital Signs Vital Sign Reading [...] Mass Index 26.22 06/18/2024 1:53 PM EDT Plan of Treatment Upcoming Encounters Date Type Department Care Team (Late st Contact Info) Description 09/23/2024 10:30 AM EDT Office Visit [facility] [address] [place] [address] Amari Cabrera MD [address] [place] [address] Health Maintenance Due Date Last Done Comments CT Colonography 1965 Colonoscopy 1965 Colorectal Cancer Screening 1965 FIT DNA/Cologuard 1965 FIT 1965 FOBT 1965 Sigmoidoscopy 1965 Influenza Vaccine (#1) 2024 12/17/2017, 2011 Postponed from 12/01/2023 (Patient Refused) DTaP/Tdap/Td Vaccines (2 - Td or Tdap) 11/29/2024 11/29/2014 Mammogram 04/22/2025 04/22/2023, 03/, 06/08/2021, Additional history exists SDOH Screening 06/11/2025 06/11/2024 Alcohol/Substance Use Screening 06/18/2025 06/18/2024 COVID-19 Vaccine (1 - season) 2025 Postponed from 12/01/2023 (Patient Refused) Depression Screening 06/18/2025 06/18/2024, 06/19/19 Hepatitis B Vaccines (1 of 3 - 19+ 3-dose series) 06/18/2025 Postponed from 1985 (Patient Refused) Pneumococcal Vaccine: 50+ Years (1 of 1 - PCV) 06/18/2025 Postponed from 2016 (Patient Refused) Tobacco Screening 06/18/2025 06/18/2024 Zoster Vaccines (1 of 2) 06/18/2025 Pos tponed from 2016 (Patient Refused) Cervical Cancer Screening 04/23/2028 HPV/Cotest 04/23/2028 04/23/2023, 09/09/2018 Pap Smear 04/23/2028 04/23/2023 Lipid Panel 06/22/2029 06/22/2024, 04/01, 07/04/2021, Additional history exists RSV Patients and Patients Aged 60 years or older (1 - 1-dose 75+ series) 2041 HIV Screening Completed 07/04/2021 Hepatitis C Screening Completed 07/04/2021 HIB Vaccines Aged Out No longer eligi ble based on patient's age to complete this topic HPV Vaccines Aged Out No longer eligi ble based on patient's age to complete this topic Hepatitis A Vaccines Aged Out No long er eligible based on patient's age to complete this topic IPV Vaccines Aged Out No longer eligi ble based on patient's age to complete this topic Meningococcal Vaccine Aged Out No sonia harrison eligible based on patient's age to complete this topic RSV under 20 months Aged Out No longe r eligible based on patient's age to complete this topic Rotavirus Vaccines Aged Out No longer eligible based on patient's age to complete this topic Procedures Procedure Name Priority Date/Time Associated Diagnosis Comments TSH W/REFLEX TO FT4 Routine 06/22/2024 1 :35 PM EDT Annual physical exam Hypercholesterolemia Primary hypertension LIPID PANEL, STANDARD Routine 06/22/2024 1:35 PM EDT Annual physical exam Hypercholesterolemia Primary hypertension COMPREHENSIVE METABOLIC PANEL Routine 06/22/2024 1:35 PM EDT Annual physical exam Hypercholesterolemia Primary hypertension CBC WITH AUTO DIFFERENTIAL Routine 06/22/2024 1:35 PM EDT Annual physical exam Hypercholesterolemia Primary hypertension Depressive disorder HPV MRNA E6/E7 REFLEX TO HPV 16, 18/45 Routine 04/23/2023 10:40 AM EST PAP SMEAR Routine 04/23/2023 10:40 AM EST Cervical cancer screening BI MAMMOGRAM SCREENING TOMOSYNTHESIS BILATERAL Routine 04/22/2023 3:00 PM EST [facility] HISTORICAL HEPATITIS C AB W/REFL TO HCV RNA, QN, PCR Routine 07/04/2021 11:10 AM EDT HIV 1/2 ANTIGEN/ANTIBODY, FOURTH GENERATION W/RFL Routine 07/04/2021 11:10 AM EDT from Last 3 Months or Most Recently Relevant to Health Maintenance Results * TSH W/Reflex to FT4 (06/22/2024 1:35 PM EDT) TSH reflex Free T4 2.22 0.32 - 4.0 uIU/mL [facility] Blood Venous blood specimen / Unknown 06/22/2024 1:35 PM EDT 06/22/2024 4:11 PM EDT us Amari Cabrera MD LAB BLOOD ORDERABLES Final Result [facility] [address], [place] [phone] * (ABNORMAL) CBC auto differential (06/22/2024 1:35 PM EDT) White Blood Count 8.0 4.8 - 10.8 X10*3/uL [facility] Red Blood Count 4.03(L) 4.20 - 5.50 X10*6/uL [facility] Hemoglobin 12.1 12.0 - 16.0 g/dl [facility] Hematocrit 36.2(L) 37.0 - 47.0 % [facility] Mean Corpuscular Volume 89.8 80.0 - 98.0 fL [facility] Mean Corpuscular Hemoglobin 30.0 27.0 - 33.0 pg [facility] Mean Corpuscular HGB Conc 33.4 31.0 - 35.0 g/dl [facility] Red Cell Distribution Width 13.8 11.0 - 16.0 % [facility] Platelet Count 326 160 - 400 X10*3/uL [facility] Mean Platelet Volume 10.1 9.4 - 12.3 fL [facility] Neutrophils Percent Auto 52.0 45 - 73 % [facility] Imm Gran Pct Auto 0.5(H) 0.0 - 0.4 % [facility] Lymphocytes Percent Auto 36.6 20 - 40 % [facility] Monocytes Percent Auto 9.8 2 - 11 % [facility] Eosinophils Percent Auto 0.7 0 - 4 % [facility] Basophils Percent Auto 0.4 0 - 2 % [facility] NRBC Pct Auto 0.0 0.0 - 0.2 /100WBC [facility] Neutrophils Absolute Auto 4.2 2.0 - 8.3 x10*3/uL [facility] Imm Gran Abs Auto 0.04(H) 0.00 - 0.03 X10*3/uL [facility] Lymphocytes Absolute Auto 2.9 1.2 - 4.9 X10*3/uL [facility] Monocytes Absolute Auto 0.8 0.1 - 1.2 X10*3/uL [facility] Eosinophils Absolute Auto 0.1 0.0 - 0.4 X10*3/uL [facility] Basophils Absolute Auto 0.0 0.0 - 0.2 X10*3/uL [facility] NRBC Abs Auto 0.000 0.0 - 0.012 X10*3/uL [facility] Blood Venous blood specimen / Unknown 06/22/2024 1:35 PM EDT 06/22/2024 4:11 PM EDT us Amari Cabrera MD LAB BLOOD ORDERABLES Final Result [facility] [address] [place] [address] [phone] * Lipid Panel, Standard (06/22/2024 1:35 PM EDT) Triglycerides 98 <150 mg/dL [facility] Comment:Desirable Triglyceri de: less than 150 mg/dLBorderline High Triglyceride 150-199 mg/dLHigh Triglyceride: 200-499 mg/dLVery High Triglyceride: greater than or equal to 5OO mg/dL Cholesterol 171 <200 mg/dL [facility] Comment:Desirable Cholestero l: less than 200 mg/dLBorderline High Cholesterol: 200-239 mg/dLHigh Cholesterol: greater than 239 mg/dL LDL Cholesterol Calculated 92 <100 mg/dL [facility] Comment:Desirable LDL: less than 100 mg/dLNear Optimal/Above Optimal LDL: 110- 129 mg/dLBorderline High LDL: 130-159 mg/dLHigh LDL: 160-189 mg/dLVery High LDL: greater than or equal to 190 mg/dL HDL Cholesterol 60 >40 mg/dL [facility] Comment:Desirable HDL: great er than 40 mg/dL Note: This HDL assay may give artificially low results in patients with liver disease. Blood Venous blood specimen / Unknown 06/22/2024 1:35 PM EDT 06/22/2024 4:11 PM EDT us Amari Cabrera MD LAB BLOOD ORDERABLES Final Result [facility] [address] [place] [address] [phone] * (ABNORMAL) Comprehensive Metabolic Panel (06/22/2024 1:35 PM EDT) Sodium 139 135 - 145 mmol/L [facility] Potassium 3.2(L) 3.3 - 5.1 mmol/L [facility] Chloride 104 96 - 108 mmol/L [facility] Carbon Dioxide 25 22 - 29 mmol/L [facility] Anion Gap 13 12 - 20 [facility] Urea Nitrogen (BUN) 20(H) 9 - 16 mg/dL [facility] Creatinine, Serum 0.65 0.5 - 1.4 mg/dL [facility] Estimated Glomerular Filt Rate >60 [facility] Comment:Chronic Kidney Disea se: Estimated GFR < 60 mL/min/1.63b1Gnvnol Kidney Disease: Estimated GFR < 15 mL/min/1.73m2 Glucose 102 60 - 115 mg/dL [facility] Calcium 9.7 8.4 - 10.2 mg/dL [facility] Bilirubin, Total 0.5 0.0 - 1.0 mg/dL [facility] Aspartate Amino Transferase 31 5 - 31 U/L [facility] Alanine Aminotransferase 28 0 - 31 U/L [facility] Total Protein 8.0 6.5 - 8.0 g/dL [facility] Albumin Level 4.3 3.5 - 5.0 g/dL [facility] Alkaline Phosphatase 72 39 - 117 U/L [facility] Blood Venous blood specimen / Unknown 06/22/2024 1:35 PM EDT 06/22/2024 4:11 PM EDT us Amari Cabrera MD LAB BLOOD ORDERABLES Final Result Performing Organization Address [facility]/ZIP Co de Phone Number [facility] [address] [place] [address] [phone] * HPV mRNA E6/E7 w/Reflex to HPV Genotypes 16, 18/45 (04/23/2023 10:40 AM EST) HPV nRNA E6/E7 Not Detected Not Detected [facility] Comment:Methodology: Transcr iption-Mediated AmplificationThis assay detects E6/E7 viral messenger RNA (mRNA) from 14high-risk HPV types (16,18,31,33,35,39,45,51,52,56,58,59,66,68).Cervical sources are required for HPV testing.If a vaginal source from a patient who has had atotal hysterectomy with removal of cervix wassubmitted, please contact the testing laboratoryfor alternative testing options.For additional information, please refer tohttp://education.GoEuro/faq/FVR764q5(This link if provided for information/educational purposes only.)THIS TEST WAS PERFORMED AT:[facility] [place] [id number] ENGLAND MD HPV mRNA E6/E7 [facility] HPV 16 RNA [facility] HPV 18/45 RNA [facility] 04/23/2023 10:4 0 AM EST 04/25/2023 8:00 AM EST Rafaela MCRAE LAB CYTOLOGY ORDERABLES F inal Result Performing Organization Address [facility]/ZIP Co de Phone Number [facility] [address] [place] [address] [phone] * Pap Smear (04/23/2023 10:40 AM EST) Swab Cervix uteri structure / Unknown 04/23/2023 10:40 AM EST 04/25/2023 8:00 AM EST Narrative [facility] - 05/10/2023 3:14 PM EST ----- ------- Name: Oriana Lares ? Age/Sex: 57/F ? : 1965 Unit#: [id number] ?? Attend Dr: RAFAELA PLASENCIA CNM ?Re04/23/23 ?Status: DEP REF ? Location: HO.CHCLNP ? Disch: ? ----- ------- SPEC : [id number] ? RECD: 04/25/23 ? STATUS: ??SOUT ? REQ NUM: [id number] ? AUSTYN: 04/23/23-1040 ? SUBM DR: RAFAELA PLASENCIA CNM ? ENTERED: ??04/25/23-1108 ?SP TYPE: Pap Smr ?OTHR : ? ORDERED: ??Pap Smear ? Interpretation ?? Satisfactory for evaluation. ?? Atrophic. ?? Negative for intraepithelial lesion or malignancy. ?HPV mRNA E6/E7: ?NOT DETECTED ? This assay detects E6/E7 viral messenger RNA (mRNA) from 14 high-risk HPV types (16, 18, ?? 31, 33, 35, 39, 45, 51, 52, 56, 58, 59, 66, 68) ?? HPV testing performed by [facility], [place], [place]. ??See reference laboratory ?? portion of the EMR for entire report. ?Clinical Information LMP: Unknown date Previous PAP test: Unknown date/findings ? Material Received ?? ThinPrep-Cervical ----- ------- Signed (signature on file) LYNDON Gamble (ASCP) 05/10/23 1514 ? ----- ------- ? END OF REPORT ? us Rafaela Plasencia CNM LAB CYTOLOGY ORDERABLES F inal Result [facility] [address] [place] [address] [phone] * BI Mammogram Screening Tomosynthesis Bilateral (04/22/2023 3:00 PM EST) Anatomical Region Laterality Modality Breast Bilateral Mammography 04/22/2023 3:00 PM EST Narrative 05/13/2023 6:09 AM EST ? [facility] ? [address] ?[place] [address] ? Mammography Report ? Signed ? Patient: Arnaud,Oriana M ?MR#: [id number] ?? [id number] ? : 1965 ?Acct:[id number] ? Age/Sex: 57 / F ?ADM Date: 04/22/23 ? Loc: HO.MAMMO ? Attending Dr: Amari Cabrera MD ? Ordering Physician: Amari Cabrera MD ?Results: 1 ?? Negative ? Date of Service: 04/22/23 ?Follow Up: 1 Year From Orig ?? inal Mammogram ? Procedure(s): MM tomosynthesis screening BI ?? Accession Number(s): [id number] ? cc: Amari Cabrera MD ? EXAMINATION: ?? MM SCREENING DIGITAL BREAST TOMOSYNTHESIS, BILATERAL ? CLINICAL INFORMATION: ? Screening. Asymptomatic. ? COMPARISON: ?? Mammography: This study is compared with prior exams dating back to ?? 2017. ? TECHNIQUE: ?? Digital breast tomosynthesis is performed in both the craniocaudal and ?? mediolateral oblique views along with computer-aided detection (CAD). ?? Synthesized 2D images are generated from the tomosynthesis. ? FINDINGS: ?? There are scattered areas of fibroglandular density (ACR BI-RADS breast ?? composition Category b). ? There are no significant masses, abnormal calcifications, or other ?? abnormalities. ? MM/MM tomosynthesis screening BI ?? IMPRESSION: ?? No mammographic evidence of malignancy. ? ASSESSMENT: ? BI-RADS BI-RADS 1 - Negative ? RECOMMENDATION: ?? Routine annual mammography screening. ? 1 year F/U ? This examination should not preclude the clinical evaluation of a ?? suspicious palpable abnormality. ? This patient's information was entered into a reminder system with a ?? target due date for their next mammogram. ? Dictated By: ?Jacquelyn Jaime MD ? Signed By: ?<Electronically signed by Jacquelyn Jaime MD in OV> ? 05/13/23 0605 ? DD/ 1500 ? TD/TT: ? Business Continuity Strategy Director: ? Procedure Note Bozena, Image - 05/13/2023 [facility] [address] [place] [address] Dr. [place], [place] [address] Mammography Report Signed Patient: Oriana Lares [facility]#: [id number] : 1965Acct:[id number] Age/Sex: 57 / FADM Date: 04/22/23 Loc: [facility] Attending Dr: Amari Cabrera MD Ordering Physician: Amari Cabrera MDResults: 1 Negative Date of Service: 04/22/23Follow Up: 1 Year From Orig ina Mammogram Procedure(s): MM tomosynthesis screening BI Accession Number(s): [id number] cc: Amari Cabrera MD EXAMINATION: MM SCREENING DIGITAL BREAST TOMOSYNTHESIS, BILATERAL CLINICAL INFORMATION: Screening. Asymptomatic. COMPARISON: Mammography: This study is compared with prior exams dating back to 2017. TECHNIQUE: Digital breast tomosynthesis is performed in both the craniocaudal and mediolateral oblique views along with computer-aided detection (CAD). Synthesized 2D images are generated from the tomosynthesis. FINDINGS: There are scattered areas of fibroglandular density (ACR BI-RADS breast composition Category b). There are no significant masses, abnormal calcifications, or other abnormalities. MM/MM tomosynthesis screening BI IMPRESSION: No mammographic evidence of malignancy. ASSESSMENT: BI-RADS BI-RADS 1 - Negative RECOMMENDATION: Routine annual mammography screening. 1 year F/U This examination should not preclude the clinical evaluation of a suspicious palpable abnormality. This patient's information was entered into a reminder system with a target due date for their next mammogram. Dictated By: Jacquelyn Jaime MD Signed By: <Electronically signed by Jacquelyn Jaime MD in OV> 05/13/23 0605 DD/ 1500 TD/TT: Business Continuity Strategy Director: us Amari Cabrera MD IMG BI PROCEDURES Final Res ult * HEPATITIS C AB W/REFL TO HCV RNA, QN, PCR (07/04/2021 11:10 AM EDT) HEPATITIS C ANTIBODY NON-REACT [facility] NON-REACT [facility] INDEX 0.14 <1.00 [facility] Comment: ?? HCV antibody was non-reactive. There is no laboratory ?? evidence of HCV infection. ?? In most cases, no further action is required. However, if recent HCV exposure is suspected, a test for HCV RNA (test code 01396) is suggested. ?? For additional information please refer to http://education.GoEuro/faq/DHV49e9 (This link is being provided for informational/ educational purposes only.) ?? 07/04/2021 11:1 0 AM EDT Esau Resendiz MD HISTORICAL/NON ORD ERABLE LABS Final Result Performing Organization Address [facility] Co de Phone Number [facility] [address] * HIV 1/2 ANTIGEN/ANTIBODY,FOURTH GENERATION W/RFL (07/04/2021 11:10 AM EDT) HIV-1/2 ANTIGEN AND ANTIBODIES, 4TH GENERATION W/ REFLEX NON-REACT DEREK NON-REACT DEREK [facility] Comment: HIV-1 antigen and HIV-1/HIV-2 antibodies were not detected. There is no laboratory evidence of HIV infection. ?? PLEASE NOTE: This information has been disclosed to you from records whose confidentiality may be protected by state law. ??If your state requires such protection, then the state law prohibits you from making any further disclosure of the information without the specific written consent of the person to whom it pertains, or as otherwise permitted by law. A general authorization for the release of medical or other information is NOT sufficient for this purpose. ? For additional information please refer to http://education.GoEuro/faq/NLW373 (This link is being provided for informational/ educational purposes only.) ? The performance of this assay has not been clinically validated in patients less than 2 years old. ?? 07/04/2021 11:1 0 AM EDT Esau Resendiz MD LAB BLOOD ORDERABL ES Final Result Performing Organization Address [facility] de Phone Number [facility] [address] from Last 3 Months or Most Recently Relevant to Health Maintenance [facility] Burner Technician Relationship Specialty Start Date End Date Amari Cabrera MD [address] [place] [phone] PCP - General Internal Medicine 07/27/11
--- OUTSIDE RECORDS SUMMARY | 2024-06-24 14:04 | XMS_ITS | Encounter Summary ---
Author Organization [employer] Address [address] [facility] 7t [place] [address] Care Team Providers Care Sprayer Automatic Spray Machine Name Role Phone Amari Cabrera MD Primary Care Provider [phone] Encounter Details Date Type Department Care Team ([facility] st Contact Info) Description 06/12/2024 Population Health Risk Score [facility] ([facility]) Department [address] [id number] Provider, Population Health Generic Social History Tobacco Use Types Packs/Day Years Used Date Smoking Tobacco: Never Smokeless Tobacco: Never Alcohol Use Standard Drinks/Week Comments Not Currently 0 (1 standard drink = 0.6 oz pur e alcohol) Depression Answer Date Recorded Patient Health Questionnaire-9 [...] Recorded Patient Health Questionnaire-2 Score 6 03/13/2023 Internet Access Answer Date Recorded Internet Access [...] Upcoming Encounters Date Type Department Care Team ([facility] st Contact Info) Description 09/23/2024 10:30 AM EDT Office Visit [facility] [address] [place] [address] Amari Cabrera MD [address] [place] [address] documented as of this encounter Visit Diagnoses Not on filedocumented in this encounter Additional Health Concerns Assessment Noted Time PHQ-9 Depression Total Score: 13 023 10:43 AM EST documented as of this encounter Care Teams Sprayer Automatic Spray Machine Relationship Specialty Start Date End Date Amari Cabrera MD [address] [place] [address] PCP - General Internal Medicine 07/27/11 documented as of this encounter
--- OUTSIDE RECORDS SUMMARY | 2024-06-24 14:04 | XMS_ITS | Encounter Summary ---
Author Organization [employer] Address 75 [facility] 7t [place] [address] Care Team Providers Care Dental Amalgam Processor Name Role Phone Amari Cabrera MD Primary Care Provider [phone] Encounter Details Date Type Department Care Team (Latest Contact Info) Description 06/18/2024 Travel Social History Tobacco Use Types Packs/Day Years [...] Description 09/23/2024 10:30 AM EDT Office Visit [facility] [address] [place] [address] Amari Cabrera MD [address] [place] [address] documented as of this encounter Visit Diagnoses Not on filedocumented in this encounter Additional Health Concerns Assessment Noted Time PHQ-9 Depression Total Score: 6 06/19/19 25 2:22 PM EDT documented as of this encounter Care Teams Dental Amalgam Processor Relationship Specialty Start Date End Date Amari Cabrera MD [address] [place] [address] PCP - General Internal Medicine 07/27/11 documented as of this encounter
--- OUTSIDE RECORDS SUMMARY | 2024-06-24 14:04 | XMS_ITS | Encounter Summary ---
Author Organization [employer] Address 75 [facility] 7 [place] [address] Care Team Providers Care Deflash And Wash Operator Name Role Phone Amari Cabrera MD Primary Care Provider [phone] Reason for Visit * Reason Comments Pre-visit Planning SDOH positive, Tobac co screening negative Encounter Details Date Type Department Care Team ([facility] st Contact Info) Description 06/11/2024 Patient Outreach [facility] & [facility]EDS [address] [place] [address] Amari Cabrera MD [address] [place] [address] Pre-visit Planning (SDOH positive, Tobacco screening negative) Social History Tobacco Use Types Packs/Day Years [...] AM EDT documented as of this encounter Progress Notes * Bekah Osborn - 06/11/2024 4:39 PM EDT CC Bekah Lima placed successful outbound call to patient for pre-visit planning. Patient name and confirmed. Patient confirms appt date and time, and has transportation arrangements. Biggest concern for appointment at this time is referral to eye doctor. Appropriate screenings completed in anticipation of appointment. SDOH positive, patient need transportation. documented in this encounter Plan of Treatment Upcoming Encounters Date Type Department Care Team ([facility] st Contact Info) Description 09/23/2024 10:30 AM EDT Office Visit [facility] [address] [place] [address] Amari Cabrera MD [address] [place] [address] documented as of this encounter Visit Diagnoses Not on filedocumented in this encounter Additional Health Concerns Assessment Noted Time PHQ-9 Depression Total Score: 13 023 10:43 AM EST documented as of this encounter Care Teams Deflash And Wash Operator Relationship Specialty Start Date End Date Amari Cabrera MD [address] [place] [id number] PCP - General Internal Medicine 07/27/11 documented as of this encounter
--- OUTSIDE RECORDS SUMMARY | 2024-06-24 14:04 | XMS_ITS | Encounter Summary ---
Author Organization [employer] Address 75 [facility] 7t [place] [address] Care Team Providers Care Police Chief Name Role Phone Amari Cabrera MD Primary Care Provider [phone] Reason for Visit * Reason Comments Med Refill Encounter Details Date Type Department Care Team ([facility] Contact Info) Description 09/30/2022 Refill [facility] & PEDS [address] [place] [address] Amari Cabrera MD [address] [place] [address] Acute midline low back pain without sciatica Social History Tobacco Use Types Packs/Day Years Used Date Smoking Tobacco: Never Smokeless Tobacco: Never Comments Unknown Sex and Gender Information Value Date Recorded Sex Assigned at Female 01/29/2022 10:15 AM EDT Legal Sex Female 10:15 AM EDT Gender Identity Female 01/29/2022 10:15 AM EDT Sexual Orientation Straight 01/29/2022 10 :15 AM EDT COVID-19 Exposure Response Date Recorded In the last 10 days, have yo u been in contact with someone who was confirmed or suspected to have Coronavirus/COVID-19? No / Unsure 09/19/2022 2:03 PM EDT documented as of this encounter Plan of Treatment Upcoming Encounters Date Type Department Care Team ([facility] Contact Info) Description 09/23/2024 10:30 AM EDT Office Visit [facility] [address] [place] [address] Amari Cabrera MD [address] [place], [place] [phone] documented as of this encounter Visit Diagnoses Diagnosis Acute midline low back pain without sciatica documented in this encounter Care Teams Police Chief Relationship Specialty Start Date End Date Amari Cabrera MD [address] [place] [phone] PCP - General Internal Medicine 07/27/11 documented as of this encounter
--- OUTSIDE RECORDS SUMMARY | 2024-06-24 14:05 | XMS_ITS | Encounter Summary ---
Author Organization [employer] Address 75 [facility] 7t [place] [address] Care Team Providers Care Digital Production Artist Name Role Phone Amari Cabrera MD Primary Care Provider [phone] Reason for Visit * Reason Comments Med Refill Encounter Details Date Type Department Care Team (Late Contact Info) Description 09/27/2022 Refill [facility] MED & PEDS [address] [place], [place] [phone] Amari Cabrera MD [address] [place] [address] Tinea versicolor Social History Tobacco Use Types Packs/Day Years [...] Encounters Date Type Department Care Team (Late Contact Info) Description 09/23/2024 10:30 AM EDT Office Visit [facility] [address] [place] [address] Amari Cabrera MD [address] [place], [place] [phone] documented as of this encounter Visit Diagnoses Diagnosis Tinea versicolor Pityriasis versicolor documented in this encounter Care Teams Digital Production Artist Relationship Specialty Start Date End Date Amari Cabrera MD [address] [place] [id number] PCP - General Internal Medicine 07/27/11 documented as of this encounter
--- OUTSIDE RECORDS SUMMARY | 2024-06-24 14:05 | XMS_ITS | Encounter Summary ---
Author Organization [employer] Address 75 [facility] 7 [place] [address] Care Team Providers Care Inking Machine Tender Name Role Phone Amari Cabrera MD Primary Care Provider [phone] Reason for Visit * Reason Comments Med Refill Encounter Details Date Type Department Care Team (Late st Contact Info) Description 05/02/2022 Refill [facility] [address] [place] [address] Valorie Tilley MD Pruritus of skin (Primary Dx) Social History Tobacco Use Types Packs/Day Years Used Date Smoking Tobacco: Never Assessed Comments Unknown Sex and Gender Information Value [...] Description 09/23/2024 10:30 AM EDT Office Visit [facility] [address] [place] [address] Amari Cabrera MD [address] [place] [address] documented as of this encounter Visit Diagnoses Diagnosis Pruritus of skin- Primary Unspecified pruritic disorder documented in this encounter Care Teams Inking Machine Tender Relationship Specialty Start Date End Date Amari Cabrera MD [address] [place] [address] PCP - General Internal Medicine 07/27/11 documented as of this encounter
--- OUTSIDE RECORDS SUMMARY | 2024-06-24 14:05 | XMS_ITS | Encounter Summary ---
Author Organization [employer] Address 75 [facility] 7 [place] [address] Care Team Providers Care Senior Strategy Manager Name Role Phone Amari Cabrera MD Primary Care Provider [phone] Encounter Details Date Type Department Care Team (Late st Contact Info) Description 05/15/2022 Orders Only [facility] [address] [place] [address] Dyan Harrington LPN Social History Tobacco Use Types Packs/Day Years [...] Description 09/23/2024 10:30 AM EDT Office Visit [facility] & PEDS [address] [place] [address] Amari Cabrera MD [address] [place] [address] documented as of this encounter Visit Diagnoses Not on filedocumented in this encounter Care Teams Senior Strategy Manager Relationship Specialty Start Date End Date Amari Cabrera MD [address] [place] [address] PCP - General Internal Medicine 07/27/11 documented as of this encounter
== END 2024-06-24 11:33 | disposition home or self-care (01) ==
LOC: HO.MAMMO 11:32
PROVIDERS: PCP Internal Medicine; Visit Provider Internal Medicine
DX: Z12.31 Encounter for screening mammogram for malignant neoplasm of breast (principal)
CPT/HCPCS: 77063; 77067

== ENCOUNTER → 2024-06-24 12:15 | Outpatient (BNV) | payer MEDICAID, SELFPAY | PROVIDERS: PCP Internal Medicine; Visit Provider Internal Medicine | DX: Z12.31 Encounter for screening mammogram for malignant neoplasm of breast (principal) | CPT/HCPCS: 77063; 77067 ==